=== PATIENT | male | born 1960 | race African-American/Black ===

== ENCOUNTER 2020-05-05 18:10 | Inpatient (IN) | payer OTHER ==
[~2020-05-05] VITALS: Ht 200.7 cm; Wt 160.7 kg
[2020-05-05] MEDS ORDERED: ASPIRIN 81MG TABLET PO ONE (20:30)
[2020-05-05] MEDS ORDERED: NITROGLYCERIN 0.4MG TABLET SL SL PRN (20:30)
[2020-05-05] MEDS ORDERED: HYDROCODONE/ACETAMINOPHEN 5/325MG TABLET PO ONE (20:30)
[2020-05-05] MEDS ORDERED: ENOXAPARIN 100MG/ML SYR SUBCUT ONE (20:30)
[2020-05-05] MEDS ORDERED: ENOXAPARIN 120MG/0.8ML SYR SUBCUT NR (21:12)
[2020-05-05 22:07] LABS: EOSINOPHILS % 2.8 % (0.0-5.0); HEMATOCRIT. 37.8 % (42.0-52.0); LYMPHOCYTES % 27.6 % (20.0-50.0); MEAN CORPUSCULAR HEMOGLOBIN 29.4 pg (28.0-32.0); MEAN CORPUSCULAR VOLUME 85.4 fL (80.0-94.0); MEAN PLATELET VOLUME 7.4 fl (7.4-10.4); MONOCYTES % 6.1 % (2.0-8.0); NEUTROPHILS % 62.5 % (40.0-76.0); PLATELET 495 x1000/uL (130-400); RED BLOOD CELL COUNT 4.42 mill/uL (4.7-6.1); RED CELL DISTRIBUTION WIDTH 13.7 % (11.6-14.6)
[2020-05-05 22:12] LABS: CHLORIDE 105 mEq/L (98-107)
[2020-05-05 22:16] LABS: ETHANOL BLOOD < 10 mg/dL
[2020-05-05 22:19] LABS: INR 1.1; PROTHROMBIN TIME 11.9 sec (9.6-11.0)
[2020-05-05] MEDS ORDERED: MORPHINE SULFATE 4 MG/ML CPJ (NOT FOR IM USE) IV STA (22:35)
[2020-05-05] MEDS ORDERED: ONDANSETRON HCL 4MG/2ML INJ IV STA (22:35)
[2020-05-05] MEDS ORDERED: CEPHALEXIN 250MG CAPSULE PO ONE (22:45)
[2020-05-05] MEDS ORDERED: FUROSEMIDE 40MG/4ML VIAL IVP ONE (22:45)
[2020-05-05] MEDS ORDERED: ACETAMINOPHEN 325MG TABLET PO ONE (23:45)
[2020-05-05] MEDS ORDERED: OXYCODONE HCL 10MG TABLET SR 12HR PO ONE (23:45)
[2020-05-06] MEDS ORDERED: CLONIDINE 0.1MG TABLET PO PRN (03:00)
[2020-05-06] MEDS ORDERED: ONDANSETRON HCL 4MG/2ML INJ IV PRN (03:00)
[2020-05-06] MEDS ORDERED: DEXTROSE 50% WATER 50ML SYRINGE IV PRN (03:00)
[2020-05-06] MEDS ORDERED: ACETAMINOPHEN 325MG TABLET PO PRN ×2 (03:00)
[2020-05-06] MEDS ORDERED: MAGNESIUM/ALUMINUM HYDROXIDE/SIMETHICONE 30ML UDC PO PRN (03:00)
[2020-05-06] MEDS ORDERED: DIPHENHYDRAMINE 50MG/ML VIAL IV PRN (03:00)
[2020-05-06] MEDS ORDERED: VANCOMYCIN 1 G PREMIX 200 ML IV SCH (04:00)
[2020-05-06] MEDS: HYDROMORPHONE HCL/PF 2MG/ML CPJ IV PRN ×4 (05:20→22:33)
[2020-05-06] MEDS: ZOLPIDEM TARTRATE 5MG TABLET PO PRN ×2 (05:20→21:19)
[2020-05-06] MEDS ORDERED: VANCOMYCIN 750 MG PREMIX 150 ML IV NR (09:00)
[2020-05-06] MEDS: BLOOD SUGAR DIAGNOSTIC STRIP TEST SCH ×4 (09:05→21:07)
[2020-05-06 13:49] VITALS: BP 154/101
[2020-05-06 14:00] VITALS: BP 151/76
[2020-05-06] MEDS: AMLODIPINE 5MG TABLET PO SCH ×2 (14:03→21:19)
[2020-05-06] MEDS: ENOXAPARIN 40MG/0.4ML SYR SUBCUT SCH (14:03)
[2020-05-06] MEDS: INSULIN LISPRO 100 UNITS/ML SUBCUT SCH ×3 (14:56→21:00)
[2020-05-06] MEDS: SODIUM CHLORIDE 0.9% INJ 3ML FLUSH IVF SCH ×2 (14:56→21:19)
[2020-05-06 16:00] VITALS: BP 142/81
[2020-05-06] MEDS ORDERED: HYDR-4134 MT (16:08)
[2020-05-06] MEDS ORDERED: RIVA20TA MT (16:08)
[2020-05-06] MEDS ORDERED: CARV6.2548 MT (16:08)
[2020-05-06] MEDS ORDERED: LISI40TA4 MT (16:08)
[2020-05-06] MEDS ORDERED: PANT40TA4 MT (16:08)
[2020-05-06] MEDS ORDERED: AMLO10TA80 MT (16:08)
[2020-05-06] MEDS ORDERED: DOCU100T PO (16:08)
[2020-05-06] MEDS ORDERED: *PATIENT'S OWN MEDICATION STORAGE XX SCH (16:30)
[2020-05-06 17:42] VITALS: BP 137/74
[2020-05-06 20:00] VITALS: BP 138/91
[2020-05-06] MEDS: CEFTRIAXONE 1,000 MG in DEXTROSE 5% WATER 50 ML IV SCH (21:18)
[2020-05-06 22:00] VITALS: BP 132/68
[2020-05-07] VITALS (12 sets, daily range): BP systolic 125–200; BP diastolic 71–98
[2020-05-07] MEDS: HYDROMORPHONE HCL/PF 2MG/ML CPJ IV PRN ×3 (02:14→10:44)
[2020-05-07] MEDS: SODIUM CHLORIDE 0.9% INJ 3ML FLUSH IVF SCH ×3 (06:25→21:02)
[2020-05-07] MEDS: BLOOD SUGAR DIAGNOSTIC STRIP TEST SCH ×4 (06:31→20:44)
[2020-05-07] MEDS: INSULIN LISPRO 100 UNITS/ML SUBCUT SCH ×4 (07:49→20:52)
[2020-05-07] MEDS: AMLODIPINE 5MG TABLET PO SCH ×2 (09:17→20:51)
[2020-05-07] MEDS: ENOXAPARIN 40MG/0.4ML SYR SUBCUT SCH (09:17)
[2020-05-07 09:55] LABS: CHLORIDE 107 mEq/L (98-107)
[2020-05-07] MEDS: GABAPENTIN 100MG CAPSULE PO SCH ×2 (12:50→17:26)
[2020-05-07] MEDS: VANCOMYCIN 1 G PREMIX 200 ML IV SCH (15:16)
[2020-05-07] MEDS: HYDROCODONE/ACETAMINOPHEN 5/325MG TABLET PO PRN (18:34)
[2020-05-07] MEDS: CEFTRIAXONE 1,000 MG in DEXTROSE 5% WATER 50 ML IV SCH (20:39)
[2020-05-07] MEDS: ZOLPIDEM TARTRATE 5MG TABLET PO PRN (21:02)
[2020-05-08] VITALS (15 sets, daily range): BP systolic 128–171; BP diastolic 69–99
[2020-05-08] MEDS: HYDROCODONE/ACETAMINOPHEN 5/325MG TABLET PO PRN ×3 (05:31→19:42)
[2020-05-08] MEDS: BLOOD SUGAR DIAGNOSTIC STRIP TEST SCH ×4 (06:56→21:36)
[2020-05-08] MEDS: SODIUM CHLORIDE 0.9% INJ 3ML FLUSH IVF SCH ×3 (06:57→22:19)
[2020-05-08] MEDS: INSULIN LISPRO 100 UNITS/ML SUBCUT SCH ×4 (07:20→22:06)
[2020-05-08] MEDS: AMLODIPINE 5MG TABLET PO SCH ×2 (08:52→22:06)
[2020-05-08] MEDS: GABAPENTIN 300MG CAPSULE PO SCH ×3 (08:52→17:30)
[2020-05-08] MEDS: VANCOMYCIN 1 G PREMIX 200 ML IV SCH (09:00)
[2020-05-08] MEDS: RIVAROXABAN 20 MG TABLET PO SCH (17:31)
[2020-05-08] MEDS: CEFTRIAXONE 1,000 MG in DEXTROSE 5% WATER 50 ML IV SCH (22:05)
[2020-05-09] VITALS (12 sets, daily range): BP systolic 113–165; BP diastolic 63–95
[2020-05-09] MEDS: VANCOMYCIN 1 G PREMIX 200 ML IV SCH ×2 (01:13→22:55)
[2020-05-09] MEDS: HYDROCODONE/ACETAMINOPHEN 5/325MG TABLET PO PRN (03:40)
[2020-05-09] MEDS: SODIUM CHLORIDE 0.9% INJ 3ML FLUSH IVF SCH ×3 (06:00→22:02)
[2020-05-09] MEDS: BLOOD SUGAR DIAGNOSTIC STRIP TEST SCH ×4 (06:30→21:01)
[2020-05-09] MEDS: AMLODIPINE 5MG TABLET PO SCH ×2 (08:57→21:22)
[2020-05-09] MEDS: GABAPENTIN 300MG CAPSULE PO SCH ×3 (08:57→18:08)
[2020-05-09] MEDS: INSULIN LISPRO 100 UNITS/ML SUBCUT SCH ×4 (08:58→21:21)
[2020-05-09] MEDS ORDERED: CEPH-569 MT (16:39)
[2020-05-09] MEDS: RIVAROXABAN 20 MG TABLET PO SCH (18:08)
[2020-05-09] MEDS: CEFTRIAXONE 1,000 MG in DEXTROSE 5% WATER 50 ML IV SCH (21:20)
[2020-05-09] MEDS: ZOLPIDEM TARTRATE 5MG TABLET PO PRN (21:44)
[2020-05-10] VITALS (9 sets, daily range): BP systolic 123–157; BP diastolic 60–97
[2020-05-10] MEDS: SODIUM CHLORIDE 0.9% INJ 3ML FLUSH IVF SCH (05:13)
[2020-05-10] MEDS: BLOOD SUGAR DIAGNOSTIC STRIP TEST SCH ×2 (06:38→11:50)
[2020-05-10] MEDS: INSULIN LISPRO 100 UNITS/ML SUBCUT SCH ×2 (08:51→12:20)
[2020-05-10] MEDS: AMLODIPINE 5MG TABLET PO SCH (08:53)
[2020-05-10] MEDS: GABAPENTIN 300MG CAPSULE PO SCH (08:53)
== END 2020-05-10 12:22 | disposition home or self-care (01) | DRG 603 ==
LOC: ER 18:10 → MICUSO 23:55 → EDBEDREQ 23:59 → EDBEDREQTM 23:59 → 3WST 05-06 10:13
PROVIDERS: ADMIT Internal Medicine; ATTEND Internal Medicine
DX: L03.116 Cellulitis of left lower limb (principal); E11.9 Type 2 diabetes mellitus without complications; E66.01 Morbid (severe) obesity due to excess calories; J44.9 Chronic obstructive pulmonary disease, unspecified; Z86.73 Personal history of transient ischemic attack (TIA), and cerebral infarction without residual deficits; I25.2 Old myocardial infarction; I25.10 Atherosclerotic heart disease of native coronary artery without angina pectoris; I11.0 Hypertensive heart disease with heart failure; I50.9 Heart failure, unspecified; E78.5 Hyperlipidemia, unspecified; I48.91 Unspecified atrial fibrillation; Z88.5 Allergy status to narcotic agent; Z86.711 Personal history of pulmonary embolism
CPT/HCPCS: 36415; 71045; 73590; 80048; 80053; 80202; 80320; 82962; 83036; 83880; 84484; 85025; 85651; 86140; 93005; 93970; 99291; J0696; J1170; J1650; J1815; J1940; J2405; J3370; J7040; J7060; G0480

== ENCOUNTER 2021-06-11 21:28 | Inpatient (IN) | payer OTHER ==
[~2021-06-11] VITALS: Ht 188 cm; Wt 136.2 kg
[~2021-06-11 21:28] MED LIST: AMLO10TA80 MT; CARV6.2548 MT; CEPH-569 MT; DOCU100T PO; HYDR-4134 MT; LISI40TA13 MT; PANT40TA51 MT; RIVA20TA MT
[2021-06-11] MEDS ORDERED: ASPIRIN 81MG TABLET PO ONE (23:15)
[2021-06-11] MEDS ORDERED: FUROSEMIDE 40MG/4ML VIAL IV ONE (23:15)
[2021-06-11 23:31] LABS: BASOPHILS % 0.8 % (0.0-2.0); EOSINOPHILS % 0.7 % (0.0-5.0); HEMATOCRIT. 46.1 % (42.0-52.0); HEMOGLOBIN. 15.5 g/dL (14.0-18.0); LYMPHOCYTES % 21.8 % (20.0-50.0); MEAN CORPUSCULAR HEMOGLOBIN 28.7 pg (28.0-32.0); MEAN CORPUSCULAR VOLUME 85.5 fL (80.0-94.0); MONOCYTES % 7.1 % (2.0-8.0); NEUTROPHILS % 69.6 % (40.0-76.0); RED BLOOD CELL COUNT 5.39 mill/uL (4.7-6.1); RED CELL DISTRIBUTION WIDTH 13.2 % (11.6-14.6)
[2021-06-11 23:51] LABS: CHLORIDE 99 mEq/L (98-107)
[2021-06-12] MEDS: NITROGLYCERIN 0.4MG TABLET SL SL PRN ×3 (00:02→00:19)
[2021-06-12] MEDS ORDERED: LEVOFLOXACIN 750MG PREMIX 150 ML IV ONE (00:30)
[2021-06-12 00:52] LABS: MEAN PLATELET VOLUME 9.2 fl (7.4-10.4); PLATELET 222 x1000/uL (130-400)
[2021-06-12] MEDS ORDERED: MORPHINE SULFATE 4 MG/ML CPJ (NOT FOR IM USE) IV STA (00:54)
[2021-06-12] MEDS ORDERED: ONDANSETRON HCL 4MG/2ML INJ IV STA (00:54)
[2021-06-12] MEDS ORDERED: DIPHENHYDRAMINE 50MG/ML VIAL IV ONE ×2 (01:00→02:30)
[2021-06-12] MEDS ORDERED: DEXAMETHASONE 10 MG/ML VIAL IV ONE (01:15)
[2021-06-12] MEDS ORDERED: ACETAMINOPHEN 650MG/20.3ML UDC GT PRN (02:00)
[2021-06-12] MEDS ORDERED: DEXTROSE 50% WATER 50ML SYRINGE IV PRN (02:00)
[2021-06-12] MEDS ORDERED: AZITHROMYCIN 500MG/250ML 250 ML IV NR (02:30)
[2021-06-12] MEDS ORDERED: NALOXONE HCL 0.4MG/ML VIAL IV PRN (05:45)
[2021-06-12] MEDS: BLOOD SUGAR DIAGNOSTIC STRIP TEST SCH ×4 (06:29→21:00)
[2021-06-12] MEDS: INSULIN LISPRO 100 UNITS/ML SUBCUT SCH ×4 (06:32→21:00)
[2021-06-12] MEDS ORDERED: CEFTRIAXONE 1 G PREMIX 50 ML IV SCH (08:00)
[2021-06-12] MEDS ORDERED: DEXAMETHASONE 4MG/ML 1ML VIAL IV SCH (09:00)
[2021-06-12] MEDS: MORPHINE SULFATE 2 MG/ML CPJ (NOT FOR IM USE) IV PRN ×3 (10:19→21:46)
[2021-06-12] MEDS: DIPHENHYDRAMINE 50MG/ML VIAL IV PRN ×3 (10:19→21:45)
[2021-06-12] MEDS: ALBUTEROL (0.083%) 2.5MG/3ML NEB HHN SCH ×2 (12:00→18:00)
[2021-06-12] MEDS: FUROSEMIDE 40MG/4ML VIAL IVP SCH (12:15)
[2021-06-12 16:23] LABS: CREATINE KINASE 164 IU/L (39-308)
[2021-06-12] MEDS ORDERED: RIVAROXABAN 20 MG TABLET PO SCH (17:00)
[2021-06-12] MEDS: RIVAROXABAN 15 MG TABLET PO SCH (18:22)
[2021-06-12] MEDS: INSULIN GLARGINE UD 100 UNITS/ML SYR SUBCUT SCH (18:24)
[2021-06-12 19:00] LABS: BASOPHILS % 0.5 % (0.0-2.0); EOSINOPHILS % 0.1 % (0.0-5.0); HEMATOCRIT. 45.4 % (42.0-52.0); HEMOGLOBIN. 15.4 g/dL (14.0-18.0); MEAN CORPUSCULAR HEMOGLOBIN 29.1 pg (28.0-32.0); MEAN CORPUSCULAR VOLUME 85.9 fL (80.0-94.0); MEAN PLATELET VOLUME 9.1 fl (7.4-10.4); MONOCYTES % 3.3 % (2.0-8.0); NEUTROPHILS % 81.1 % (40.0-76.0); PLATELET 266 x1000/uL (130-400); RED BLOOD CELL COUNT 5.28 mill/uL (4.7-6.1); RED CELL DISTRIBUTION WIDTH 13.2 % (11.6-14.6)
[2021-06-12 19:10] LABS: CHLORIDE 101 mEq/L (98-107)
[2021-06-12 22:00] VITALS: BP 130/90
[2021-06-12 22:22] VITALS: BP 141/97
[2021-06-12 23:22] LABS: PROTHROMBIN TIME 10.9 sec (9.6-11.0)
[2021-06-13] VITALS: BP 148/90
[2021-06-13] MEDS ORDERED: MELA1TAB28 PO (00:22)
[2021-06-13] MEDS ORDERED: GABA-532 PO (00:22)
[2021-06-13] MEDS: MELATONIN 3MG TABLET PO PRN ×2 (01:52→22:25)
[2021-06-13] MEDS: DIPHENHYDRAMINE 50MG/ML VIAL IV PRN ×2 (03:27→20:14)
[2021-06-13] MEDS: MORPHINE SULFATE 2 MG/ML CPJ (NOT FOR IM USE) IV PRN ×2 (03:28→20:14)
[2021-06-13 04:00] VITALS: BP 144/84
[2021-06-13] MEDS: BLOOD SUGAR DIAGNOSTIC STRIP TEST SCH ×4 (05:47→20:24)
[2021-06-13] MEDS: ALBUTEROL (0.083%) 2.5MG/3ML NEB HHN SCH ×3 (05:48→12:00)
[2021-06-13 08:00] VITALS: BP 144/89
[2021-06-13] MEDS: INSULIN LISPRO 100 UNITS/ML SUBCUT SCH ×4 (08:10→22:26)
[2021-06-13] MEDS ORDERED: AZITHROMYCIN 500 MG in DEXT 5% WATER 250 ML IV SCH (09:00)
[2021-06-13] MEDS: CEFTRIAXONE 1,000 MG in DEXTROSE 5% WATER 50 ML IV SCH (09:57)
[2021-06-13] MEDS: DEXAMETHASONE 10 MG/ML VIAL IV SCH (09:58)
[2021-06-13] MEDS: FUROSEMIDE 40MG/4ML VIAL IVP SCH (09:58)
[2021-06-13] MEDS: INSULIN GLARGINE UD 100 UNITS/ML SYR SUBCUT SCH (11:51)
[2021-06-13 12:00] VITALS: BP 152/95
[2021-06-13] MEDS ORDERED: GABAPENTIN 300MG CAPSULE PO NR (15:00)
[2021-06-13 16:00] VITALS: BP 131/85
[2021-06-13] MEDS: RIVAROXABAN 15 MG TABLET PO SCH (17:49)
[2021-06-13] MEDS: PANTOPRAZOLE 40MG DR TABLET PO SCH (17:49)
[2021-06-13 20:00] VITALS: BP 136/71
[2021-06-13] MEDS ORDERED: INSULIN GLARGINE UD 100 UNITS/ML SYR SUBCUT SCH (22:00)
[2021-06-13] MEDS: GABAPENTIN 300MG CAPSULE PO SCH (22:25)
[2021-06-14] VITALS: BP 133/68
[2021-06-14 04:00] VITALS: BP 138/74
[2021-06-14] MEDS: GABAPENTIN 300MG CAPSULE PO SCH ×3 (05:43→21:38)
[2021-06-14] MEDS: BLOOD SUGAR DIAGNOSTIC STRIP TEST SCH ×4 (07:40→21:00)
[2021-06-14 08:00] VITALS: BP 143/93
[2021-06-14] MEDS: DEXAMETHASONE 10 MG/ML VIAL IV SCH (08:25)
[2021-06-14] MEDS: PANTOPRAZOLE 40MG DR TABLET PO SCH (08:26)
[2021-06-14] MEDS: INSULIN LISPRO 100 UNITS/ML SUBCUT SCH ×4 (08:26→21:43)
[2021-06-14] MEDS: CEFTRIAXONE 1,000 MG in DEXTROSE 5% WATER 50 ML IV SCH (08:26)
[2021-06-14] MEDS: DIPHENHYDRAMINE 50MG/ML VIAL IV PRN ×2 (09:32→21:44)
[2021-06-14] MEDS: MORPHINE SULFATE 2 MG/ML CPJ (NOT FOR IM USE) IV PRN ×3 (09:33→21:44)
[2021-06-14] MEDS: INSULIN GLARGINE UD 100 UNITS/ML SYR SUBCUT SCH ×2 (11:12→21:44)
[2021-06-14 12:00] VITALS: BP 110/59
[2021-06-14] MEDS: ALBUTEROL (0.083%) 2.5MG/3ML NEB HHN SCH (12:00)
[2021-06-14] MEDS ORDERED: DEXA4TAB69 MT (14:21)
[2021-06-14] MEDS ORDERED: AZIT500T3 MT (14:21)
[2021-06-14 14:26] LABS: HEMATOCRIT 46.6 % (42.0-52.0); HEMOGLOBIN 15.6 g/dL (14.0-18.0); MEAN CORPUSCULAR HEMOGLOBIN 28.7 pg (28.0-32.0); MEAN CORPUSCULAR VOLUME 85.9 fL (80.0-94.0); PLATELET 380 x1000/uL (130-400); RED BLOOD CELL COUNT 5.43 mill/uL (4.7-6.1); RED CELL DISTRIBUTION WIDTH 13.2 % (11.6-14.6)
[2021-06-14] MEDS ORDERED: GABA-532 PO (14:27)
[2021-06-14 16:00] VITALS: BP 168/104
[2021-06-14] MEDS: SODIUM CHLORIDE 0.9% 1,000 ML IV SCH (16:55)
[2021-06-14] MEDS: AZITHROMYCIN 500 MG TABLET PO SCH (16:56)
[2021-06-14] MEDS: AMLODIPINE 10MG TABLET PO SCH (16:56)
[2021-06-14] MEDS: RIVAROXABAN 15 MG TABLET PO SCH (16:57)
[2021-06-14 20:00] VITALS: BP 147/92
[2021-06-14] MEDS: MELATONIN 3MG TABLET PO PRN (23:49)
[2021-06-15] MEDS: GABAPENTIN 300MG CAPSULE PO SCH ×3 (05:03→22:33)
[2021-06-15] MEDS: MORPHINE SULFATE 2 MG/ML CPJ (NOT FOR IM USE) IV PRN ×4 (05:03→22:34)
[2021-06-15] MEDS: DIPHENHYDRAMINE 50MG/ML VIAL IV PRN ×4 (05:19→23:34)
[2021-06-15] MEDS: SODIUM CHLORIDE 0.9% 1,000 ML IV SCH (06:27)
[2021-06-15 07:29] LABS: BASOPHILS % 0.2 % (0.0-2.0); HEMATOCRIT. 43.8 % (42.0-52.0); HEMOGLOBIN. 14.7 g/dL (14.0-18.0); LYMPHOCYTES % 10.4 % (20.0-50.0); MEAN CORPUSCULAR HEMOGLOBIN 28.4 pg (28.0-32.0); MEAN CORPUSCULAR VOLUME 84.6 fL (80.0-94.0); MEAN PLATELET VOLUME 8.7 fl (7.4-10.4); MONOCYTES % 8.8 % (2.0-8.0); NEUTROPHILS % 80.6 % (40.0-76.0); PLATELET 423 x1000/uL (130-400); RED BLOOD CELL COUNT 5.18 mill/uL (4.7-6.1); RED CELL DISTRIBUTION WIDTH 12.9 % (11.6-14.6)
[2021-06-15] MEDS: BLOOD SUGAR DIAGNOSTIC STRIP TEST SCH ×4 (07:35→21:36)
[2021-06-15 08:00] VITALS: BP 124/82
[2021-06-15] MEDS: DEXAMETHASONE 4MG/ML 1ML VIAL IV SCH (09:18)
[2021-06-15] MEDS: CEFTRIAXONE 1,000 MG in DEXTROSE 5% WATER 50 ML IV SCH (09:18)
[2021-06-15] MEDS: FAMOTIDINE 20MG TABLET PO SCH (09:18)
[2021-06-15] MEDS: AZITHROMYCIN 500 MG TABLET PO SCH (09:18)
[2021-06-15] MEDS: AMLODIPINE 10MG TABLET PO SCH (09:19)
[2021-06-15] MEDS: INSULIN LISPRO 100 UNITS/ML SUBCUT SCH ×4 (09:29→22:36)
[2021-06-15] MEDS ORDERED: AZITHROMYCIN 500 MG in DEXT 5% WATER 250 ML IV SCH (11:00)
[2021-06-15] MEDS: INSULIN GLARGINE UD 100 UNITS/ML SYR SUBCUT SCH ×2 (11:38→22:35)
[2021-06-15 12:00] VITALS: BP 147/84
[2021-06-15 16:06] VITALS: BP 140/61
[2021-06-15] MEDS: RIVAROXABAN 15 MG TABLET PO SCH (17:31)
[2021-06-15 20:00] VITALS: BP 130/90
[2021-06-15] MEDS: MELATONIN 3MG TABLET PO PRN (22:55)
[2021-06-16 00:16] VITALS: BP 142/95
[2021-06-16] MEDS: GABAPENTIN 300MG CAPSULE PO SCH (06:48)
[2021-06-16] MEDS: BLOOD SUGAR DIAGNOSTIC STRIP TEST SCH ×2 (06:48→12:20)
[2021-06-16] MEDS: MORPHINE SULFATE 2 MG/ML CPJ (NOT FOR IM USE) IV PRN (06:59)
[2021-06-16] MEDS: DIPHENHYDRAMINE 50MG/ML VIAL IV PRN (07:06)
[2021-06-16 08:00] VITALS: BP 150/96
[2021-06-16] MEDS: CEFTRIAXONE 1,000 MG in DEXTROSE 5% WATER 50 ML IV SCH (08:38)
[2021-06-16] MEDS: AMLODIPINE 10MG TABLET PO SCH (08:38)
[2021-06-16] MEDS: FAMOTIDINE 20MG TABLET PO SCH (08:38)
[2021-06-16] MEDS: DEXAMETHASONE 4MG/ML 1ML VIAL IV SCH (08:38)
[2021-06-16] MEDS: AZITHROMYCIN 500 MG TABLET PO SCH (08:38)
[2021-06-16] MEDS: INSULIN LISPRO 100 UNITS/ML SUBCUT SCH (08:39)
[2021-06-16] MEDS: INSULIN GLARGINE UD 100 UNITS/ML SYR SUBCUT SCH (11:01)
[2021-06-16 12:00] VITALS: BP 104/60
[2021-06-16 13:59] LABS: HEMATOCRIT. 45.4 % (42.0-52.0); HEMOGLOBIN. 15.2 g/dL (14.0-18.0); MEAN CORPUSCULAR HEMOGLOBIN 28.7 pg (28.0-32.0); MEAN CORPUSCULAR VOLUME 85.5 fL (80.0-94.0); MEAN PLATELET VOLUME 8.1 fl (7.4-10.4); PLATELET 482 x1000/uL (130-400); RED BLOOD CELL COUNT 5.31 mill/uL (4.7-6.1); RED CELL DISTRIBUTION WIDTH 13.2 % (11.6-14.6)
[2021-06-17 08:19] LABS: PLATELET ESTIMATE INCREASED
== END 2021-06-16 14:20 | disposition left against medical advice (07) | DRG 871 ==
LOC: ER 21:28 → MICUSO 06-12 03:48 → 7WST 06-12 19:30
PROVIDERS: ADMIT Family Medicine; ATTEND Family Medicine
DX: A41.89 Other specified sepsis (principal); U07.1 COVID-19; J12.82 Pneumonia due to coronavirus disease 2019; J96.01 Acute respiratory failure with hypoxia; E43 Unspecified severe protein-calorie malnutrition; N17.0 Acute kidney failure with tubular necrosis; I50.43 Acute on chronic combined systolic (congestive) and diastolic (congestive) heart failure; J44.0 Chronic obstructive pulmonary disease with (acute) lower respiratory infection; E87.1 Hypo-osmolality and hyponatremia; I13.0 Hypertensive heart and chronic kidney disease with heart failure and stage 1 through stage 4 chronic kidney disease, or unspecified chronic kidney disease; I48.91 Unspecified atrial fibrillation; E78.5 Hyperlipidemia, unspecified; E66.9 Obesity, unspecified; I48.0 Paroxysmal atrial fibrillation; R19.7 Diarrhea, unspecified; E78.00 Pure hypercholesterolemia, unspecified; I25.10 Atherosclerotic heart disease of native coronary artery without angina pectoris; E11.42 Type 2 diabetes mellitus with diabetic polyneuropathy; N18.30 Chronic kidney disease, stage 3 unspecified; E11.22 Type 2 diabetes mellitus with diabetic chronic kidney disease; Z79.01 Long term (current) use of anticoagulants; Z88.5 Allergy status to narcotic agent; Z88.0 Allergy status to penicillin; Z79.899 Other long term (current) drug therapy; Z87.891 Personal history of nicotine dependence; Z83.3 Family history of diabetes mellitus; Z82.49 Family history of ischemic heart disease and other diseases of the circulatory system; Z86.73 Personal history of transient ischemic attack (TIA), and cerebral infarction without residual deficits; Z68.38 Body mass index [BMI] 38.0-38.9, adult
CPT/HCPCS: 36415; 71045; 76770; 80048; 80053; 82550; 82553; 82728; 82962; 83036; 83605; 83615; 83880; 84132; 84145; 84484; 85025; 85027; 86140; 87426; 93005; 99291; J0456; J0696; J1100; J1200; J1815; J1940; J1956; J2270; J2405; J7030; J7040; J7060